=== PATIENT | female | born 2000 | race Caucasian/White ===

== ENCOUNTER 2022-04-06 18:20 | Outpatient (CLI) | payer MEDICAID ==
[~2022-04-06] VITALS: Ht 154.9 cm; Wt 68.5 kg
--- NOTE | 2022-04-06 18:45 | NUR ---
Pt to unit ambulatory for NST due to decreased movement. Pt states she was at work this afternoon and had an episode of low blood sugar. 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 Pt reports not feeling baby move as much today and baby is usually very active. When going over assessment pt states that her due date is 05/02 based on an ultrasound performed in upper tract, our records show a due date of 05/10. Pt denies feeling contractions, denies bleeding or LOF. Pt oriented to room, call light within reach, bed in low and locked position. Clean gown on. US and toco explained and applied. Vitals obtained. Reviewed plan of care. Support person, patients aunt, at bedside.
--- NOTE | 2022-04-06 19:05 | NUR ---
NST criteria met per Dr. Moore. Pt still has not felt baby move at much. Apple juice provided and pt educated on how movements change towards the end of . 1915 - movement audible, pt reports feeling movement, ok with plan to discharge home.
--- NOTE | 2022-04-06 19:15 | NUR ---
Contractions noted on monitor about every 2-5 minutes, pt reports noticing they are happening but are not painful.
[2022-04-06] MEDS ORDERED: PRENATAL TABLET PO (19:18)
[2022-04-06] MEDS ORDERED: FERROUSAL325 MG PO (19:18)
--- NOTE | 2022-04-06 19:30 | NUR ---
Discharge instructions reviewed with patient and support person. Return precautions reviewed as well, pt verbalized understanding. Pt seen ambulating off unit in stable condition.
== END 2022-04-06 19:30 | disposition home or self-care (01) ==
LOC: LDRO 18:20 → LDR 18:30 → LDRO 19:30
DX: O36.8130 Decreased fetal movements, third trimester, not applicable or unspecified (principal); Z3A.35 35 weeks gestation of pregnancy
CPT/HCPCS: OP

== ENCOUNTER 2022-04-25 12:59 | Inpatient (IN) | payer MEDICAID ==
[2022-04-25] VITALS (26 sets, daily range): BP systolic 99–150; BP diastolic 51–75; PULSE 62–115; TEMP 97.7–98.2
[~2022-04-25] VITALS: Ht 165.1 cm; Wt 70.5 kg
[~2022-04-25 12:59] MED LIST: FERROUSAL325 MG PO; PRENATAL TABLET PO
--- NOTE | 2022-04-25 13:00 | NUR ---
PT AMBULATORY TO LR 3 C/O CONTRACTIONS Q15-20 MINUTES APART. REPORTS SEVERE PAIN WITH CONTRACTIONS. REPORTS NORMAL VAGINAL DISCHARGE, DID NOT FEEL HER BAG OF WATER BREAK. REPORTS POSITIVE MOVEMENT. CATEGORY 1 EFM TRACING INITIALLY. SVE UPON ARRIVAL . REPORTS SHE "LIVES [place]AY SO JUST IS NERVOUS TO GO HOME." WILL NOTIFY PROVIDER. SEE PHYSICIAN NOTIFICATIONS.
[2022-04-25] MEDS ORDERED: LEXAPRO 10MG10 MG PO (13:13)
--- NOTE | 2022-04-25 14:44 | NUR ---
PT AMBULATING IN HALLS, OFF MONITOR. INTERMITTENT TRACING AT THIS TIME PER NIK GREEN. PLAN TO RECHECK CHERIE @ [id number].
--- NOTE | 2022-04-25 15:15 | NUR ---
AT BEDSIDE. SVE 1. VORB TO CONTINUE TO MONITOR AND RECHECK SVE IN 1 HOUR AND UPDATE HER. PT AGREEABLE TO POC
--- NOTE | 2022-04-25 17:10 | NUR ---
THIS NURSE AT BEDSIDE. MATERNAL HEARTBEAT AUDIBLE, PT IS UNCOMFORTABLE AND EFM IS MISLOCATED ON ABDOMEN. PT OFF MONITORS TO WALK IN HALLWAY AT THIS TIME.
[2022-04-25 17:18] LABS: BASO % 0.2 % (0.0-2.0); EOS % 0.2 % (0.0-4.0); GRAN # 8.3 K/mm3 (1.4-6.5); GRAN % 75.5 % (42.2-75.2); HEMOGLOBIN 12.4 g/dl (12.0-15.0); LYMPH # 1.9 K/mm3 (1.2-3.4); MEAN CELL VOLUME 93 fl (80.0-95.0); MEAN CORPUSCULAR HEMOGLOBIN 31 pg (26-32); MEAN CORPUSCULAR HGB CONC 34 g/dl (33.0-37.0); MEAN PLATELET VOLUME 12.2 fl (7.4-10.4); MONO # 0.8 K/mm3 (0.1-0.6); MONO % 6.8 % (1.7-9.3); PLATELET COUNT 176 K/mm3 (130-400); RED BLOOD COUNT 3.95 M/mm3 (4.10-5.30); REDCELL DISTRIBUTION WIDTH-CV 15.1 % (11.5-14.5)
[2022-04-25 17:19] LABS: HEMATOCRIT 36.7 % (35.0-45.0)
--- NOTE | 2022-04-25 18:32 | NUR ---
@3274 Dr. Moore at the bedside for US baby is confirmed vertex.
--- NOTE | 2022-04-25 18:39 | NUR ---
@8628 bedside report received from [facility] Devlin. patient aaox4 in bed snacking with no apparent sign of distress. Bedside table and call long light are both within reach. Bed low with wheels locked.
--- NOTE | 2022-04-25 20:03 | NUR ---
PATIENT AMBULATING THE UNIT WITH AUNT. WILL CONTINUE TO MONITOR PT.
[2022-04-26] VITALS (9 sets, daily range): BP systolic 99–109; BP diastolic 57–68; PULSE 65–92; TEMP 98–98.7
--- NOTE | 2022-04-26 03:13 | NUR ---
@2142 [facility] [place] [place] [facility] PUSH WITH PT. RN NOITIED OF [facility] . ORDERED TO PARCTICE PUSH WITH PATIENT. PATIENT LEGS PLACED IN STIRRUPS TO PUSH. @2149 DR. DE LA VEGA NOTIFIED TO COME FOR DELIVERY. @2199 ARRIVED FOR DELIVERY @2222 BABY DELIVERED.
--- NOTE | 2022-04-26 09:52 | NUR ---
Initial visit; Patient thanked Irrigator for offering congratulations and God's blessings for the of her son. Irrigator thanked Patient for choosing [facility].
[2022-04-27 08:40] VITALS: BP 103/68; PULSE 76; TEMP 97.6
[2022-04-27] MEDS ORDERED: IBU800 M1 PO (10:59)
--- NOTE | 2022-04-27 12:30 | NUR ---
Discharge instructions and follow up care reviewed with pt and family at the bedside. Pt verbalized an understanding, agreed with the plan and states no questions or concerns at this time.
== END 2022-04-27 13:00 | disposition home or self-care (01) | DRG 806 ==
LOC: LDRO 12:59 → LDR 18:00 → LDRO 18:01 → OB 18:02 → LDR 18:02 → OB 04-26 01:00
PROVIDERS: Student in an Organized Health Care Education/Training Program; ADMIT Obstetrics & Gynecology
PROC: 10E0XZZ Delivery of Products of Conception, External Approach (ICD-10-PCS; principal; 2022-04-25)
PROC: 0UQMXZZ Repair Vulva, External Approach (ICD-10-PCS; 2022-04-25)
DX: O99.344 Other mental disorders complicating childbirth (principal); O99.354 Diseases of the nervous system complicating childbirth; Z37.0 Single live birth; O98.513 Other viral diseases complicating pregnancy, third trimester; G43.909 Migraine, unspecified, not intractable, without status migrainosus; F32.89 Other specified depressive episodes; F41.9 Anxiety disorder, unspecified; O70.0 First degree perineal laceration during delivery; O77.0 Labor and delivery complicated by meconium in amniotic fluid; Z3A.37 37 weeks gestation of pregnancy
CPT/HCPCS: J2590; J7120